=== PATIENT | female | born 2000 | race American Indian/Alaskan Native ===

== ENCOUNTER 2019-03-15 13:56 | Emergency (ER) | payer SELFPAY ==
--- NOTE | 2019-03-15 14:27 | Event Note ---
ED Screening Note ED Screening Note: pt states she is having vaginal bleeding for 10 days did not see [facility]ATOR no abdominal pain This initial assessment/diagnostic orders/clinical plan/treatment(s) is/are subject to change based on patients health status, clinical progression and re- assessment by fellow clinical providers in the ED. Further treatment and workup at subsequent clinical providers discretion. Patient/guardian urged not to elope from the ED as their condition may be serious if not clinically assessed and managed. Initial orders include: UA, urine preg, CBC
[2019-03-15 14:28] VITALS: BP 119/79
[2019-03-15 14:58] LABS: HCG Qualitative,Urine Negative (Negative)
[2019-03-15 15:00] LABS: Hematocrit 39.9 % (30.3-42.9); Hemoglobin 13.2 gm/dl (10.1-14.3); Mean Corpuscular HGB Conc 33 % (30-34); Mean Corpuscular Volume 89 fl (79-97); Platelet Count 179 K/mm3 (140-440); Red Cell Distribution Width 14.9 % (13.2-15.2)
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
[2019-03-15 20:22] LABS: Basophils % (Manual) 0 % (0.0-1.8); Eosinophils % (Manual) 0 % (0.0-4.3); Total Cells Counted 100
[2019-03-15 20:23] LABS: Platelet Estimate Consistent w Auto; RBC Morphology Normal
== END 2019-03-15 16:16 | disposition home or self-care (01) ==
LOC: ED 13:56
DX: N93.8 Other specified abnormal uterine and vaginal bleeding (principal); Z79.899 Other long term (current) drug therapy
CPT/HCPCS: 36415; 81025; 85007; 85025

== ENCOUNTER 2020-05-11 16:43 | Emergency (ER) | payer SELFPAY ==
[2020-05-11 17:21] LABS: Basophils # (Auto) 0.1 K/mm3 (0.0-0.1); Basophils % (Auto) 1.1 % (0.0-1.8); Eosinophils % (Auto) 0.3 % (0.0-4.3); Hematocrit 39.2 % (30.3-42.9); Hemoglobin 13.2 gm/dl (10.1-14.3); Lymphocytes # (Auto) 1.4 K/mm3 (1.2-5.4); Lymphocytes % (Auto) 27.1 % (13.4-35.0); Mean Corpuscular HGB Conc 34 % (30-34); Mean Corpuscular Volume 92 fl (79-97); Monocytes # (Auto) 0.4 K/mm3 (0.0-0.8); Monocytes % (Auto) 8.2 % (0.0-7.3); Platelet Count 173 K/mm3 (140-440); Red Blood Count 4.28 M/mm3 (3.65-5.03); Red Cell Distribution Width 14.5 % (13.2-15.2)
[2020-05-11 17:47] LABS: Bilirubin,Urine NEG (Negative); Blood,Urine LG (Negative); Calcium Oxalate Crystals,Urine FEW; Color,Urine Yellow (Yellow); Mucus,Urine 3+ /HPF
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
[2020-05-11 23:41] VITALS: BP 116/78
== END 2020-05-11 21:40 | disposition home or self-care (01) ==
LOC: ED 16:43
DX: N92.6 Irregular menstruation, unspecified (principal); N93.8 Other specified abnormal uterine and vaginal bleeding; Z79.899 Other long term (current) drug therapy; Z98.890 Other specified postprocedural states
CPT/HCPCS: 36415; 81001; 84703; 85025; 86900; 86901